=== PATIENT | female | born 2000 | race Caucasian/White ===

== ENCOUNTER 2021-02-21 17:55 | Emergency (ER) | payer BC ==
[~2021-02-21] VITALS: Ht 167.6 cm; Wt 83.9 kg
== END 2021-02-21 23:09 | disposition home or self-care (01) ==
LOC: ED 17:55
DX: S09.90XA Unspecified injury of head, initial encounter (principal); V48.5XXA Car driver injured in noncollision transport accident in traffic accident, initial encounter
CPT/HCPCS: 70450; 99284-25; A9270